=== PATIENT | female | born 1985 | race Caucasian/White ===

== ENCOUNTER 2016-10-15 09:07 | Emergency (ER) | payer OTHER ==
[~2016-10-15] VITALS: Ht 162.6 cm; Wt 61.3 kg
[~2016-10-15 09:07] MED LIST: ACID CONTROLLER10 MG PO; AZITHROMYCIN250 MG PO; CEFDINIR300 MG PO; CIPRO250 MG PO; CIPRO500 MG PO; CIPRO500 MG/5 M GT; CIPRO500 MG/5 M PO; FLAGYL500 MG PO; GENTLELAX119 GM PO; HYOSCYAMINE0.125 MG PO; LANSOPRAZOLE30 MG GT; LEVAQUIN750 MG PO; MIRALAX17 GM PO; MUPIROCIN22 GM TP; NORCO 5/3251 TABLET PO; ONDANSETRON4 MG/5 ML PO; PHENERGAN-CODE120 ML PO; POLYETHYLENE G255 GM PO; PREVACID SOLUTA30 MG PO; PREVACID15 MG PO; PROVENTIL,2.5 MG/3 M IH; QUETIAPINE FUMA25 MG PO; RANITIDINE HCL75 MG PO; RANITIDINE15 MG/1 ML PO; ROBINUL1 MG PO; SEROQUEL12.5 MG PO; TRAZODONE HCL50 MG PO; TYLENOL650 MG/20. GT; ZANTAC75 M1 PO; ZITHROMAX200 MG/5 M PO; ZYPREXA5 MG PO; Zyvox GT; Zyvox PEG; [UNRECOGNIZED DRUG - OTHER] GT; [UNRECOGNIZED DRUG - OTHER] PO
[2016-10-15 10:27] LABS: EOSINOPHIL (%) 2.7 % (0-5); EOSINOPHIL COUNT 0.1 K/uL (0-0.3); HEMATOCRIT 43.7 % (36.0-46.0); IMMATURE GRANULOCYTE (%) 0.2 % (0.0-0.7); INSTRUMENT ABS NEUTROPHIL CT 1.9 K/uL; LYMPHOCYTE COUNT 2.1 K/uL (1.0-2.8); MCH 31.8 PG (29.0-34.0); MCHC 33.2 G/DL (30.0-36.0); MCV 95.8 FL (83-99); MEAN PLAT.VOLUME 12.4 uM^3 (9.5-12.4); MONOCYTE (%) 8.5 % (3-12); MONOCYTE COUNT 0.4 K/uL (0-0.8); NEUTROPHIL (%) 41.6 % (45-76); NEUTROPHIL COUNT 1.9 K/uL (1.8-6.4); PLATELET COUNT 124 K/uL (156-360); RBC DIS.WIDTH-CV 11.8 % (11.8-14.6); RBC DIS.WIDTH-SD 40.9 % (39-53); RED BLOOD COUNT 4.56 M/uL (3.80-5.20); WHITE BLOOD COUNT 4.5 K/uL (4.1-10.2)
[2016-10-15 10:53] LABS: ADD MIUA? YES; BILIRUBIN NEGATIVE; BLOOD SMALL; COLOR YELLOW ((YELLOW)); GLUCOSE (STRIP) NEGATIVE; KETONES NEGATIVE; LEUKOCYTES MODERATE; NITRITE NEGATIVE; PROTEIN (STRIP) NEGATIVE; SPECIFIC GRAVITY 1.011 (1.000-1.030); UROBILINOGEN 0.2 MG/DL (0.2-1.0)
[2016-10-15 10:57] LABS: ANION GAP 12 MEQ/L (2-14); CHLORIDE 104 MEQ/L (99-109); POTASSIUM 5.1 MEQ/L (3.7-5.4); SAMPLE HEMOLYSIS CHECK 0; SAMPLE ICTERIC CHECK 0; SAMPLE LIPEMIA CHECK 0; SODIUM 141 MEQ/L (136-147); TOTAL BILIRUBIN 0.3 MG/DL (0.0-1.0)
[2016-10-15 11:03] LABS: ALKALINE PHOSPHATASE 106 IU/L (3-129); GFR ESTIMATE (CALCULATED) > 59 mL/min/; GLUCOSE 84 mg/dL (70-99); LIPASE 50 U/L (1.0-51.0); UREA NITROGEN (BUN) 21 mg/dL (9-23)
[2016-10-15 11:35] LABS: BACTERIA RARE /HPF; EPITHELIAL CELLS 1+ /HPF; MUCUS NONE SEEN /LPF; RED BLOOD CELLS 0-5 /HPF (0-5); UCUL ADDED? NO; WHITE BLOOD CELLS 0-5 /HPF (0-5)
[2016-10-15 12:30] LABS: QUANTITATIVE HCG < 4.0 MIU/ML
[2016-10-15 15:26] VITALS: BP 105/80
== END 2016-10-15 15:47 | disposition home or self-care (01) ==
LOC: EME 09:07
PROVIDERS: Emergency Medicine
DX: R10.12 Left upper quadrant pain (principal); Z43.1 Encounter for attention to gastrostomy; Z86.73 Personal history of transient ischemic attack (TIA), and cerebral infarction without residual deficits; K21.9 Gastro-esophageal reflux disease without esophagitis
CPT/HCPCS: 74177; 80053; 81003; 83605; 83690; 84702; 85025; 99281; 99284; J7030